=== PATIENT | female | born 1985 | race Caucasian/White ===

== ENCOUNTER 2017-08-23 07:32 | Emergency (ER) | payer BC ==
[2017-08-23 08:10] VITALS: BP 119/73
--- NOTE | 2017-08-23 08:32 | UC ---
Respiratory Complaint HPI - HPI Summary HPI Summary: Pt c/o cough, chest congestion ?"heavy chest", SOB with exertion, body aches, generalized malaise, fever, chills X 3 days. Has known exposure to flu. - History of Current Complaint Chief Complaint: UCRespiratory Stated Complaint: ACHY,FEVER,NAUSEA Time Seen by Provider: 08/23/17 08:15 Hx Last Menstrual Period: 08/23/17 ?: No Onset/Duration: Gradual Onset, Lasting Days, Still Present, Worse Since - onset Timing: Constant Severity Initially: Mild Severity Currently: Moderate Pain Intensity: 6 Character: Cough: Nonproductive Aggravating Factors: Exertion, Deep Breaths, Recumbent Position Alleviating Factors: Nothing Associated Signs And Symptoms: Positive: Fever, Chills, Nasal Congestion - Risk Factors Pulmonary Embolism Risk Factors: Negative, Pseudomonas Risk Factors: Negative Tuberculosis Risk Factors: Negative - Allergies/Home Medications Allergies/Adverse Reactions: Allergies Allergy/AdvReac Type Severity Reaction Status Date / Time No Known Allergies Allergy Verified 08/23/17 08:04 PMH/Surg Hx/FS Hx/Imm Hx Previously Healthy: Yes - Surgical History Surgical History: Yes Surgery Procedure, Year, and Place: LEFT foot sx - Family History Known Family History: Positive: Cardiac Disease - Social History Occupation: Employed Full-time - teacher, 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 Lives: With Family Alcohol Use: Occasionally Alcohol Amount: wekends Substance Use Type: None Smoking Status (MU): Never Smoked Tobacco Have You Smoked in the Last Year: No - Immunization History Most Recent Influenza Vaccination: none Review of Systems Constitutional: Fever, Chills, Fatigue Skin: Negative Eyes: Negative ENT: Sinus Congestion Respiratory: Shortness Of Breath, Cough Cardiovascular: Negative Gastrointestinal: Negative Genitourinary: Negative Motor: Negative Neurovascular: Negative Musculoskeletal: Negative Neurological: Negative Psychological: Negative Is Patient Immunocompromised?: No All Other Systems Reviewed And Are Negative: Yes Physical Exam Triage Information Reviewed: Yes Appearance: Ill-Appearing Vital Signs: Initial Vital Signs Temp 97.4 F 08/23/17 08:05 Pulse 75 08/23/17 08:05 Resp 16 08/23/17 08:05 BP 119/73 08/23/17 08:05 Pulse Ox 100 08/23/17 08:05 Vital Signs Reviewed: Yes Eye Exam: Normal ENT Exam: Other ENT: Positive: TM bulging - left tm Dental Exam: Normal Neck exam: Normal Respiratory Exam: Other Respiratory: Positive: Decreased breath sounds, Rhonchi Cardiovascular Exam: Normal Musculoskeletal Exam: Normal Neurological Exam: Normal Psychological Exam: Normal Skin Exam: Normal UC Diagnostic Evaluation - Laboratory O2 Sat by Pulse Oximetry: 100 Respiratory Course/Dx - Differential Dx/Diagnosis Differential Diagnosis/HQI/PQRI: Bronchitis, Influenza, Pulmonary Embolism Provider Diagnoses: Pneumonia Discharge - Discharge Plan Condition: Stable Disposition: HOME Prescriptions: Albuterol HFA INHALER* [Ventolin HFA Inhaler*] 1 puff INH Q6H PRN #1 mdi PRN Reason: Sob/Wheezing Azithromycin TAB* [Zithromax TAB (Z-TEE) 250 mg #6 tabs] 2 tab PO .TODAY, THEN 1 DAILY #1 tee predniSONE TAB* [Deltasone TAB*] 30 mg PO DAILY #9 tab Patient Education Materials: Pneumonia (ED) Referrals: Aisha Rivas MD [Primary Care Provider] - If Needed
== END 2017-08-23 08:46 | disposition home or self-care (01) ==
LOC: UCCORT 07:32
DX: J18.9 Pneumonia, unspecified organism (principal)
CPT/HCPCS: 87502; 99212; G0463

== ENCOUNTER 2017-08-25 09:10 | Emergency (ER) | payer BC ==
[2017-08-25 09:28] VITALS: BP 118/86
--- NOTE | 2017-08-25 09:58 | UC ---
General HPI - HPI Summary HPI Summary: Two days or so ago she was seen and diagnosed with pneumonia. She was placed on albuterol, prednisone and z pack. The albuterol and prednisone have not helped her symptoms. She presents today with cheek swelling but no lip swelling or throat swelling. She feels sob but denies air hunger or consistent sob. She denies hemoptysis, fever, pena productive cough. She has no chronic lung disease. - History of Current Complaint Chief Complaint: UCRespiratory Stated Complaint: SOB/SWOLLEN THOAT Time Seen by Provider: 08/25/17 09:32 Hx Obtained From: Patient Hx Last Menstrual Period: 08/22/17 Onset/Duration: Gradual Onset, Lasting Hours Timing: Constant Onset Severity: Moderate Current Severity: Moderate Pain Intensity: 0 Associated Signs & Symptoms: Positive: SOB. Negative: Fever, Headache, Melena, Nausea, Palpitations, Vomiting, Wheezing, Weakness - Allergy/Home Medications Allergies/Adverse Reactions: Allergies Allergy/AdvReac Type Severity Reaction Status Date / Time No Known Allergies Allergy Verified 08/25/17 09:21 PMH/Surg Hx/FS Hx/Imm Hx Previously Healthy: No - No chronic lung disease. - Surgical History Surgical History: Yes Surgery Procedure, Year, and Place: LEFT foot sx - Family History Known Family History: Positive: None, Cardiac Disease - Social History Occupation: Employed Full-time Alcohol Use: Occasionally Alcohol Amount: wekends Substance Use Type: None Smoking Status (MU): Never Smoked Tobacco Have You Smoked in the Last Year: No - Immunization History Most Recent Influenza Vaccination: none Review of Systems ENT: Other - facial swelling. Respiratory: Shortness Of Breath, Cough All Other Systems Reviewed And Are Negative: Yes Physical Exam Triage Information Reviewed: Yes Appearance: Well-Appearing - Appears worried but breathing and talking in full sentences and there is no obvious distress., No Pain Distress, Well-Nourished Vital Signs: Initial Vital Signs Temp 98.7 F 08/25/17 09:22 Pulse 64 08/25/17 09:22 Resp 18 08/25/17 09:22 BP 118/86 08/25/17 09:22 Pulse Ox 100 08/25/17 09:22 Vital Signs Reviewed: Yes Eyes: Positive: Conjunctiva Clear ENT: Positive: Normal ENT inspection - There is some puffiness of the cheeks but no lip or soft palate swelling., Pharynx normal, TMs normal, Uvula midline. Negative: Pharyngeal erythema, TM bulging, TM dull, TM red, Tonsillar swelling , Tonsillar exudate, Trismus, Muffled voice, Sinus tenderness Neck: Positive: Supple, Nontender, No Lymphadenopathy. Negative: Nuchal Rigidity Respiratory: Positive: Lungs clear, Normal breath sounds, No respiratory distress, No accessory muscle use. Negative: Respiratory distress, Decreased breath sounds, Accessory muscle use, Crackles, Rhonchi, Stridor, Wheezing Cardiovascular: Positive: RRR, No Murmur, Pulses Normal, Brisk Capillary Refill. Negative: Tachycardia Abdomen Description: Positive: No Organomegaly, Soft. Negative: Distended, Guarding Musculoskeletal: Positive: Strength Intact, ROM Intact, No Edema Neurological: Positive: Alert, Muscle Tone Normal. Negative: Fatigued Psychological: Positive: Normal Response To Family, Age Appropriate Behavior Skin: Negative: rashes Course/Dx - Course Course Of Treatment: She is having side effects from prednisone likely and she became very worried. Her vitals are wnl. her exam is benign. SHe is quite well appearing and lung exam is totally normal. She has no risk factors for cardiac disease. She has no clinical signs of pneumonia or actual allergic reaction. - Differential Dx - Multi-Symptom Provider Diagnoses: facial swelling. Discharge - Discharge Plan Condition: Good Disposition: HOME Patient Education Materials: Shortness of Breath (ED) Referrals: Aisha Rivas MD [Primary Care Provider] -
== END 2017-08-25 10:08 | disposition home or self-care (01) ==
LOC: UCCORT 09:10
DX: R22.0 Localized swelling, mass and lump, head (principal)
CPT/HCPCS: 99211; G0463

== ENCOUNTER 2017-08-27 07:02 | Emergency (ER) | payer BC ==
[2017-08-27 07:33] VITALS: BP 132/81
--- NOTE | 2017-08-27 08:36 | RAD ---
Indication: Shortness of breath. 2 views of the chest including dual energy PA views demonstrate no mediastinal shift. Heart is of normal size and configuration. Lung sanchez demonstrate no pleural fluid, pneumonia or pneumothorax. IMPRESSION: No active cardiopulmonary disease is noted.
--- NOTE | 2017-08-27 08:42 | ED ---
Shortness of Breath - HPI Summary HPI Summary: 32 yr old female with the complaint of SOB, palpitations, pain in the left upper back. Onset of symptoms earlier in the week. She has been back to urgent care for the third time now this week. No fever, no productive cough, no myalgias. No leg swelling. She is not on control pills. - History of Current Complaint Chief Complaint: UCGeneralIllness Time Seen by Provider: 08/27/17 07:40 - Allergy/Home Medications Allergies/Adverse Reactions: Allergies Allergy/AdvReac Type Severity Reaction Status Date / Time prednisone Allergy Facial Verified 08/27/17 07:27 Redness/Flushing PMH/Surg Hx/FS Hx/Imm Hx Endocrine/Hematology History: Denies: Hx Diabetes Respiratory History: Denies: Hx Chronic Obstructive Pulmonary Disease (COPD), Hx Lung Cancer Neurological History: Denies: Hx Transient Ischemic Attacks (TIA) Psychiatric History: Reports: Hx Anxiety, Hx Depression - Surgical History Surgery Procedure, Year, and Place: LEFT foot sx Infectious Disease History: No Infectious Disease History: Denies: Traveled Outside the [place] in Last 30 Days - Family History Known Family History: Positive: None, Cardiac Disease - Social History Occupation: Employed Full-time Lives: With Family Alcohol Use: Occasionally Alcohol Amount: wekends Substance Use Type: Reports: None Smoking Status (MU): Never Smoked Tobacco Have You Smoked in the Last Year: No Review of Systems Positive: Chest Pain Positive: Shortness Of Breath All Other Systems Reviewed And Are Negative: Yes Physical Exam Triage Information Reviewed: Yes Vital Signs On Initial Exam: Initial Vitals Temp Pulse Resp BP Pulse Ox 98.2 F 96 20 132/81 100 08/27/17 07:25 08/27/17 07:25 08/27/17 07:25 08/27/17 07:25 08/27/17 07:25 Vital Signs Reviewed: Yes Appearance: Positive: Well-Appearing, No Pain Distress Skin: Positive: Warm, Skin Color Reflects Adequate Perfusion Head/Face: Positive: Normal Head/Face Inspection Eyes: Positive: EOMI ENT: Positive: Pharynx normal Neck: Positive: Nontender Respiratory/Lung Sounds: Positive: Clear to Auscultation, Breath Sounds Present Cardiovascular: Positive: RRR. Negative: Murmur Abdomen Description: Positive: Nontender Musculoskeletal: Positive: Strength/ROM Intact. Negative: Edema Left, Edema Right Neurological: Positive: Sensory/Motor Intact, Alert, Oriented to Person Place, Time, CN Intact II-III Psychiatric: Positive: Normal - Edilson Coma Scale Best Eye Response: 4 - Spontaneous Best Motor Response: 6 - Obeys Commands Best Verbal Response: 5 - Oriented Coma Scale Total: 15 Diagnostics - Vital Signs Vital Signs Temp Pulse Resp BP Pulse Ox 08/27/17 07:25 98.2 F 96 20 132/81 100 - Laboratory Lab Statement: Any lab studies that have been ordered have been reviewed, and results considered in the medical decision making process. - Radiology chest xray Xray Interpretation: No Acute Changes Radiology Interpretation Completed By: Radiologist - final reviewed - EKG 08/27/17 Cardiac Rate: NL EKG Rhythm: Sinus Rhythm ST Segment: Normal Ectopy: None Course/Dx - Course Course Of Treatment: 32 yr old female with posterior chest pain, and sob episodes. EKG OK. Chest xray OK. She declined transfer to ER by ambulance with risk of cardiac arrest, heart attack, blood clot, disability, . - Diagnoses Provider Diagnoses: Chest pain, Shortness of breath Discharge - Discharge Plan Condition: Good Disposition: AGAINST MEDICAL ADVICE Referrals: Aisha Rivas MD [Primary Care Provider] -
== END 2017-08-27 08:48 | disposition left against medical advice (07) ==
LOC: UCCORT 07:02
DX: R07.9 Chest pain, unspecified (principal); R06.02 Shortness of breath
CPT/HCPCS: 71046; 93005; 99212; G0463

== ENCOUNTER 2019-08-05 07:35 | Emergency (ER) | payer BC ==
[2019-08-05 08:05] VITALS: BP 114/66
--- NOTE | 2019-08-05 08:55 | UC ---
FLU HPI - HPI Summary HPI Summary: Pt presents with c/o right side neck pain, tenderness, sore throat, cough, nasal congestion, fatigue and body aches. Pt states that her 9 month old on has been in [facility] for RSV and pneumonia. - History of Current Complaint Chief Complaint: UCGeneralIllness Stated Complaint: SORE THROAT, NECK PAIN Time Seen by Provider: 08/05/19 08:26 Hx Obtained From: Patient Hx Last Menstrual Period: 08/22/17 ?: No Onset/Duration: Gradual Onset, Lasting Days, Still Present, Worse Since - onset Severity Currently: Mild Severity Initially: Moderate Pain Intensity: 6 Associated Signs & Symptoms: Positive: Myalgia, Cough, Sore Throat, Nasal Congestion, Headache Related Hx: Possible Flu/Infectious Exposure - Risk Factors Influenza Risk Factors: Negative - Allergy/Home Medications Allergies/Adverse Reactions: Allergies Allergy/AdvReac Type Severity Reaction Status Date / Time prednisone Allergy Facial Verified 08/05/19 08:01 Redness/Flushing Home Medications: Home Medications Sertraline* [Zoloft*] 50 mg PO BEDTIME 08/05/19 [History Confirmed 08/05/19] PMH/Surg Hx/FS Hx/Imm Hx Previously Healthy: Yes - Surgical History Surgical History: Yes Surgery Procedure, Year, and Place: LEFT foot sx - Family History Known Family History: Positive: Cardiac Disease - Social History Occupation: Employed Full-time Lives: With Family Alcohol Use: Occasionally Alcohol Amount: wekends Substance Use Type: None Smoking Status (MU): Never Smoked Tobacco Have You Smoked in the Last Year: No - Immunization History Most Recent Influenza Vaccination: none Vaccination Up to Date: No Review of Systems All Other Systems Reviewed And Are Negative: Yes Constitutional: Positive: Fever, Chills, Fatigue Skin: Positive: Negative Eyes: Positive: Negative ENT: Positive: Sore Throat, Nasal Discharge, Sinus Congestion Respiratory: Positive: Negative, Cough Cardiovascular: Positive: Negative Gastrointestinal: Positive: Negative Genitourinary: Positive: Negative Motor: Positive: Negative Neurovascular: Positive: Negative Musculoskeletal: Positive: Myalgia - right side of neck Neurological: Positive: Negative Psychological: Positive: Negative Is Patient Immunocompromised?: No Physical Exam Triage Information Reviewed: Yes Appearance: Ill-Appearing - fatigued Vital Signs: Initial Vital Signs Temp 97.9 F 08/05/19 07:59 Pulse 95 08/05/19 07:59 Resp 17 08/05/19 07:59 BP 114/66 08/05/19 07:59 Pulse Ox 100 08/05/19 07:59 Vital Signs Reviewed: Yes Eye Exam: Normal ENT: Positive: Nasal congestion, Tonsillar swelling Dental Exam: Normal Neck: Positive: Tenderness @ - right side anterior cervical, Enlarged Nodes @ - right side anterior cervical, Other: - slight fullness right side ~ location of thyroid Respiratory Exam: Normal Cardiovascular Exam: Normal Musculoskeletal Exam: Normal Neurological Exam: Normal Psychological Exam: Normal Skin Exam: Normal Flu Course/Dx - Course Course Of Treatment: I discussed with the pt the need to f/u with PCP with c/o of "heavy then normal period", fatigue. Pt verbalized understanding and agreed to plan of car.e - Differential Dx/Diagnosis Differential Diagnosis/HQI/PQRI: Influenza, Upper Respiratory Infection Provider Diagnosis: Tonsillitis Discharge ED - Sign-Out/Discharge Documenting (check all that apply): Patient Departure All imaging exams completed and their final reports reviewed: No Studies - Discharge Plan Condition: Stable Disposition: HOME Prescriptions: Amoxicillin PO (*) [Amoxicillin 500 MG CAP*] 500 mg PO Q12H #20 cap Guaifenesin/Pseudoephedrne HCl [Mucinex D ER 600-60 mg Tablet] 1 each PO Q12H # 14 tab.er.[id number] Patient Education Materials: Tonsillitis (ED) Referrals: Aisha Rivas MD [Primary Care Provider] - As Soon As Possible - Billing Disposition and Condition Condition: STABLE Disposition: Home
[2019-08-05 09:02] LABS: Influenza A Molecular NEGATIVE (Negative); Influenza B Molecular NEGATIVE (Negative)
== END 2019-08-05 09:14 | disposition home or self-care (01) ==
LOC: UCCORT 07:35
DX: J03.90 Acute tonsillitis, unspecified (principal); R53.83 Other fatigue; R09.82 Postnasal drip; R09.81 Nasal congestion; Z88.8 Allergy status to other drugs, medicaments and biological substances
CPT/HCPCS: 99212; G0463